=== PATIENT | male | born 1955 | race Caucasian/White ===

== ENCOUNTER 2021-01-10 16:05 | Emergency (ER) | payer MEDICARE, OTHER ==
[~2021-01-10] VITALS: Ht 167.6 cm; Wt 66.7 kg
--- NOTE | 2021-01-10 16:22 | NUR ---
THE PATIENT IS [facility] FOR FUTHER EVAL FOR GENERALIZED WEAKNESS. THE PATIENT RESPONSIVE TO HIS NAME. IN NO APPARENT DISTRESS. IN ROOM AIR. RESPIRATION REGULAR AND UNLABORED. THE PATIENT IS ATTACHED TO A MONITOR. WARM BLANKET PROVIDED FOR COMFORT. WILL CONTINUE TO MONITOR THE PATIENT.
[2021-01-10] MEDS ORDERED: IV NS 0.9% 1,000 ML BAG IV ONE (16:30)
--- NOTE | 2021-01-10 16:35 | NUR ---
COVID SWAB DONE AND SENT TO THE LAB
--- NOTE | 2021-01-10 16:39 | NUR ---
TAKEN FOR CT
--- NOTE | 2021-01-10 16:45 | NUR ---
THE PATIENT IS BACK FROM [place]
[2021-01-10 16:50] LABS: BASOPHILS % (AUTO) 0.5 % (0.0-2.0); EOSINOPHILS % (AUTO) 1.6 % (0.0-6.0); HEMATOCRIT 40 % (39-51); HEMOGLOBIN 13.1 g/dL (13.5-17.5); LYMPHOCYTES # (AUTO) 1.5 /CMM (0.8-4.8); MEAN CORPUSCULAR HGB CONC 33 g/dl (31.0-36.0); MEAN CORPUSCULAR VOLUME 91 fL (80-96); MONOCYTES # (AUTO) 0.4 /CMM (0.1-1.30); MONOCYTES % (AUTO) 6.6 % (2.0-12.0); NEUTROPHILS # (AUTO) 4.5 /CMM (1.8-8.9); NEUTROPHILS % (AUTO) 68.3 % (43.0-81.0); PLATELET COUNT (AUTO) 199 /CMM (150-450); RED BLOOD CELL COUNT(AUTO) 4.37 MIL/uL (4.5-6.0); WHITE BLOOD COUNT (AUTO) 6.6 K/uL (4.3-11.0)
[2021-01-10] MEDS ORDERED: CLOP75TA15 PO (17:01)
[2021-01-10] MEDS ORDERED: FAMO20TA8 PO (17:01)
[2021-01-10] MEDS ORDERED: FLUO20CA36 PO (17:01)
[2021-01-10] MEDS ORDERED: TOLT4CAP PO (17:01)
[2021-01-10] MEDS ORDERED: ATOR80TA PO (17:01)
[2021-01-10] MEDS ORDERED: MULT-447 PO (17:01)
[2021-01-10] MEDS ORDERED: INSU100I4 SQ (17:01)
[2021-01-10] MEDS ORDERED: ASCO500C17 PO (17:01)
[2021-01-10] MEDS ORDERED: BENA20TA9 PO (17:01)
[2021-01-10] MEDS ORDERED: ARIP10TA9 PO (17:01)
[2021-01-10] MEDS ORDERED: ROPI0.255 PO (17:01)
[2021-01-10] MEDS ORDERED: THIA100T88 PO (17:01)
[2021-01-10] MEDS ORDERED: ALBU8.5H8 IH (17:01)
[2021-01-10] MEDS ORDERED: ACET-2605 PO (17:01)
[2021-01-10] MEDS ORDERED: GABA-532 PO (17:01)
[2021-01-10] MEDS ORDERED: FLUT16SP NS (17:01)
[2021-01-10] MEDS ORDERED: CLON0.1T PO (17:02)
[2021-01-10] MEDS ORDERED: EZET10TA6 PO (17:02)
[2021-01-10] MEDS ORDERED: LACT10SO3 PO (17:02)
[2021-01-10] MEDS ORDERED: NIFE-57 PO (17:02)
[2021-01-10] MEDS ORDERED: CALC355O18 PO (17:02)
[2021-01-10] MEDS ORDERED: NITR0.4T SL (17:02)
[2021-01-10 17:13] LABS: ALANINE AMINOTRANSFERASE 59 U/L (12-78); ALKALINE PHOSPHATASE 53 U/L (46-116); ASPARTATE AMINOTRANSFERASE 41 U/L (15-37); BILIRUBIN,DIRECT 0.1 mg/dL (0.0-0.2); BILIRUBIN,TOTAL 0.3 mg/dL (0.2-1.0); CALCIUM, SERUM 8.8 mg/dL (8.5-10.1); CARBON DIOXIDE 26 mmol/L (21-32); CHLORIDE 108 mmol/L (98-107); CREATININE 0.9 mg/dL (0.6-1.3); GLUCOSE 147 mg/dL (74-106); POTASSIUM 3.7 mmol/L (3.5-5.1); SODIUM SERUM 143 mmol/L (136-145); TOTAL PROTEIN, SERUM 6.8 g/dL (6.4-8.2); UREA NITROGEN, BLOOD 20 mg/dL (7-18)
--- NOTE | 2021-01-10 17:28 | NUR ---
COVID RESULT: NEGATIVE
[2021-01-10 17:52] LABS: BILIRUBIN,URINE NEGATIVE (NEGATIVE); COLOR,URINE YELLOW (YELLOW); LEUKOCYTE ESTERASE ,URINE NEGATIVE (NEGATIVE); NITRITE, URINE NEGATIVE (NEGATIVE); PROTEIN,URINE NEGATIVE (NEGATIVE); UGLUCOSE NEGATIVE (NEGATIVE); UROBILINOGEN,URINE 0.2 EU/dL (0.2)
--- NOTE | 2021-01-10 18:22 | NUR ---
THE PATIENT ALERT TO SELF. DENIES PAIN. IN ROOM AIR AND RESPIRATION IS REGULAR, UNLABORED. WILL CONTINUE TO MONITOR THE PATIENT.
--- NOTE | 2021-01-10 18:26 | NUR ---
CALLED [facility] FOR TRANSPORT TO [facility]. ETA 90 MINUTES.
--- NOTE | 2021-01-10 19:31 | NUR ---
report given to jasbir harley
[2021-01-10] MEDS ORDERED: CLONIDINE HCL 0.1 MG TABLET ONE (20:24)
[2021-01-10] MEDS ORDERED: CLONIDINE HCL 0.1 MG TABLET PO ONE (20:30)
--- NOTE | 2021-01-10 20:30 | NUR ---
ambulance put on will call, pt will still need further care
--- NOTE | 2021-01-10 21:05 | NUR ---
[facility] ETA [id number]
[2021-01-10 22:14] VITALS: BP 104/54
--- NOTE | 2021-01-10 22:14 | NUR ---
PT LEFT [facility] BACK TO [facility]. LEFT WITH [facility]. REPORT GIVEN. SOCORRO. JONAH.
== END 2021-01-10 22:15 ==
LOC: ER 16:24
DX: R53.1 Weakness (principal); R62.7 Adult failure to thrive; E11.42 Type 2 diabetes mellitus with diabetic polyneuropathy; J44.9 Chronic obstructive pulmonary disease, unspecified; E78.5 Hyperlipidemia, unspecified; F03.90 Unspecified dementia, unspecified severity, without behavioral disturbance, psychotic disturbance, mood disturbance, and anxiety; Z20.822 Contact with and (suspected) exposure to COVID-19; K21.9 Gastro-esophageal reflux disease without esophagitis; H26.9 Unspecified cataract; I10 Essential (primary) hypertension; F32.9 Major depressive disorder, single episode, unspecified; F20.9 Schizophrenia, unspecified; Z79.899 Other long term (current) drug therapy; Z79.4 Long term (current) use of insulin; Z86.73 Personal history of transient ischemic attack (TIA), and cerebral infarction without residual deficits; I67.2 Cerebral atherosclerosis; Z79.02 Long term (current) use of antithrombotics/antiplatelets
CPT/HCPCS: 36415; 70450; 71045; 80048; 80076; 80307; 81003; 83605; 84484; 85025; 85730; 87040 ×2; 87426; 93005; 96360; 99285; J7030; C9803